=== PATIENT | male | born 1990 | race Caucasian/White ===

== ENCOUNTER 2024-02-09 11:39 | Emergency (ER) | payer MEDICAID ==
[~2024-02-09] VITALS: Ht 160 cm; Wt 83.0 kg
[2024-02-09 11:43] VITALS: O2SAT 97
[2024-02-09 12:16] LABS: CHLORIDE 103 mEq/L (98-107); POTASSIUM 3.8 mEq/L (3.5-5.1); SODIUM 138 mEq/L (136-145)
[2024-02-09 12:17] LABS: CALCIUM 9.1 mg/dL (8.7-10.4); CARBON DIOXIDE 28 mEq/L (21-32)
[2024-02-09 12:19] LABS: BASOPHILS % 0.8 % (0.0-2.0); EOSINOPHILS % 2.2 % (0.0-5.0); HEMOGLOBIN. 16.6 g/dL (14.0-18.0); LYMPHOCYTES % 22.5 % (20.0-50.0); MEAN CORPUSCULAR HEMOGLOBIN 28.2 pg (28.0-32.0); MEAN CORPUSCULAR HGB CONC 33.2 g/dL (31.0-37.0); MEAN CORPUSCULAR VOLUME 84.8 fL (80.0-94.0); MEAN PLATELET VOLUME 9.8 fl (7.4-10.4); MONOCYTES % 6.8 % (2.0-8.0); NEUTROPHILS % 67.7 % (40.0-76.0); PLATELET 225 x1000/uL (130-400); RED BLOOD CELL COUNT 5.89 mill/uL (4.7-6.1); RED CELL DISTRIBUTION WIDTH 14.1 % (11.6-14.6)
[2024-02-09 12:22] LABS: CREATININE 1.1 mg/dL (0.6-1.3); GLUCOSE 86 mg/dL (70-105); UREA NITROGEN BLOOD 8 mg/dL (9-23)
[2024-02-09 12:24] LABS: ALANINE AMINOTRANSFERASE 31 IU/L (10-49); ALBUMIN 4.5 g/dL (3.2-4.8); ASPARTATE AMINOTRANSFERASE 22 IU/L (<34); BILIRUBIN DIRECT 0.2 mg/dL (<=3.0); BILIRUBIN TOTAL 1.1 mg/dL (0.1-1.0); PROTEIN TOTAL 7.4 g/dL (6.0-8.3)
[2024-02-09] MEDS ORDERED: P20 MT (14:23)
[2024-02-09] MEDS ORDERED: TOPUD MT (14:23)
[2024-02-09] MEDS ORDERED: IBUP-1525 MT (14:23)
[2024-02-09 14:43] VITALS: BP 125/91; PULSE 77; RESP 19
[2024-02-09] MEDS: IBUPROFEN 800MG TABLET PO ONE (14:43)
[2024-02-09 14:44] VITALS: TEMP 98.3
[2024-02-09] MEDS: ACETAMINOPHEN 325MG TABLET PO ONE (14:44)
[2024-02-09] MEDS: PREDNISONE 20MG TABLET PO ONE (14:44)
== END 2024-02-09 14:40 | disposition home or self-care (01) ==
LOC: EDBD 11:39 → ER 11:39
DX: M19.90 Unspecified osteoarthritis, unspecified site (principal)
CPT/HCPCS: 99284; 80076; 80048; 85025; 36415; J7512; C1893

== ENCOUNTER 2024-02-12 16:57 | Emergency (ER) | payer MEDICAID ==
[~2024-02-12] VITALS: Ht 167.6 cm; Wt 68.0 kg
[~2024-02-12 16:57] MED LIST: IBUP-1525 MT; P20 MT; TOPUD MT
[2024-02-12 17:09] VITALS: BP 135/80; RESP 16; TEMP 98.4; O2SAT 98
[2024-02-12 17:20] VITALS: PULSE 78
[2024-02-12] MEDS ORDERED: IBUPROFEN 600MG TABLET PO ONE (18:30)
== END 2024-02-12 19:11 | disposition home or self-care (01) ==
LOC: ER 16:57
DX: M25.571 Pain in right ankle and joints of right foot (principal)
CPT/HCPCS: 99281

== ENCOUNTER 2024-03-06 11:14 | Emergency (ER) | payer MEDICAID ==
[~2024-03-06] VITALS: Ht 152.4 cm; Wt 68.0 kg
[2024-03-06 11:27] VITALS: BP 125/71; PULSE 68; RESP 16; TEMP 98.3; O2SAT 97
[2024-03-06] MEDS ORDERED: IBUP-2029 MT (11:48)
[2024-03-06] MEDS: IBUPROFEN 600MG TABLET PO ONE (12:19)
== END 2024-03-06 12:24 | disposition home or self-care (01) ==
LOC: ER 11:14
DX: M79.10 Myalgia, unspecified site (principal); Z79.899 Other long term (current) drug therapy
CPT/HCPCS: 99282

== ENCOUNTER 2024-07-08 13:30 | Emergency (ER) | payer MEDICAID ==
[~2024-07-08] VITALS: Ht 160 cm; Wt 75.0 kg
[~2024-07-08 13:30] MED LIST changes: +IBUP-2029 MT
[2024-07-08 13:48] VITALS: O2SAT 99
[2024-07-08] MEDS ORDERED: TC1U15 TP (18:32)
[2024-07-08] MEDS ORDERED: CLIN-194 MT (18:32)
[2024-07-08 18:47] VITALS: BP 117/70; PULSE 64; RESP 18; TEMP 36.44736; O2SAT 99
== END 2024-07-08 18:47 | disposition home or self-care (01) ==
LOC: ER 14:03
DX: L60.0 Ingrowing nail (principal); F19.90 Other psychoactive substance use, unspecified, uncomplicated; Z79.899 Other long term (current) drug therapy
CPT/HCPCS: 99283